=== PATIENT | female | born 1985 | race Caucasian/White ===

== ENCOUNTER 2019-12-08 17:34 | Inpatient (IN) | payer BC ==
[~2019-12-08 17:34] MED LIST: Sodium Chloride 0.9% (PF) 10 ML VIAL ONE
[2019-12-08 18:11] VITALS: BMI 30.5
[2019-12-08] MEDS ORDERED: Acetaminophen 500 MG TAB PO PRN (20:06)
[2019-12-08] MEDS ORDERED: Carboprost 250 MCG/ML AMP IM PRN (20:06)
[2019-12-08] MEDS ORDERED: Butorphanol Tartrate 1 MG/ML VIAL SLOW IVP PRN (20:06)
[2019-12-08] MEDS ORDERED: Diphenoxylate HCl/Atropine Tablet PO PRN ×2 (20:06)
[2019-12-08] MEDS ORDERED: Ibuprofen 800 MG TAB PO PRN (20:06)
[2019-12-08] MEDS ORDERED: Promethazine HCl 25 MG/ML VIAL IM PRN ×2 (20:06→21:27)
[2019-12-08] MEDS ORDERED: Lidocaine 1% (PF) 30 ML VIAL SC PRN (20:06)
[2019-12-08] MEDS ORDERED: HYDROcodone/Acetaminophen 5/325 mg Tablet PO PRN ×2 (20:06)
[2019-12-08] MEDS ORDERED: Methylergonovine 0.2 MG/ML VIAL IM PRN (20:06)
[2019-12-08] MEDS ORDERED: NS / Oxytocin 40 units/1000ml 1,000 ML IV PRN (20:06)
[2019-12-08] MEDS ORDERED: Misoprostol 200 MCG TAB PR PRN (20:06)
[2019-12-08] MEDS ORDERED: hydrALAZINE 20 MG/ML VIAL SLOW IVP PRN (20:06)
[2019-12-08] MEDS ORDERED: Ondansetron PF 4 MG/2 ML Vial IVP PRN ×2 (20:06→21:27)
[2019-12-08] MEDS ORDERED: Fentanyl 4 mcg/Bup 0.1% Cadd 100 ML ONE (20:58)
[2019-12-08 21:01] LABS: Hemoglobin 13.4 g/dL (12.0-16.0); Mean Corpuscular HGB CONC 33.7 g/dL (32.0-36.0); Mean Corpuscular Hemoglobin 29.7 pg (27.0-31.0); Mean Corpuscular Volume 88.1 fL (78.0-98.0); Mean Platelet Volume 9.8 fL (7.4-10.4); Platelet Count 287 thou/uL (130-400); RBC Distribution Width 13.3 % (11.5-14.5); Red Blood Cell (RBC) Count 4.51 mill/uL (4.20-5.40); White Blood Cell (WBC) Count 18.7 thou/uL (4.8-10.8)
[2019-12-08] MEDS ORDERED: Acetaminophen 325 MG TAB PO PRN (21:27)
[2019-12-08] MEDS ORDERED: Naloxone HCl 0.4 mg/ml Vial IVP PRN ×2 (21:27)
[2019-12-08] MEDS ORDERED: diphenhydrAMINE 50 MG/ML VIAL IVP PRN (21:27)
[2019-12-08] MEDS ORDERED: Lactated Ringer's 500 ML IV PRN (21:27)
[2019-12-08] MEDS ORDERED: EPHEDRINE 25 MG/5 ML SYRINGE SLOW IVP PRN (21:27)
[2019-12-08] MEDS ORDERED: Fentanyl 4 mcg/Bupivacaine 0.1% Cassette 100 ML EPIDURAL SCH (21:30)
[2019-12-08] MEDS ORDERED: Communication Order-Pharmacy FS SCH (21:30)
[2019-12-08 21:36] LABS: Syphilis Antibody Nonreactive (Nonreactive); Syphilis Antibody Index 0.09 S/CO (<1.00 Non-Reactive)
[2019-12-08] MEDS: Lactated Ringer's 1,000 ML IV SCH (21:53)
--- NOTE | 2019-12-08 23:20 | PDOC.LDPN ---
Labor & Delivery Progress Note - Subjective Subjective: comfortable - Objective Vital signs reviewed and normal: yes General: NAD, resting Uterine fundus: non tender Dilation: 9 Effacement: 100% Station: 0 FHT: category 1 [place] contractions every: 3 mins AROM: clear fluid Plan: continue plan of care
--- NOTE | 2019-12-09 00:37 | PDOC.LDHP ---
Labor and Delivery H&P Chief complaint: contractions HPI: 34yo at 39w with painful contractions at 6cm dilated on arrival to L&D Current gestational age (weeks): 39 Due date: 12/14/19 Dating criteria: last menstrual period Grav: 3 Para: 1 Current complications: none Abnormal US findings: No Past Medical History: denies Current medications: pre-ike vitamins Allergies/Adverse Reactions: Allergies Allergy/AdvReac Type Severity Reaction Status Date / Time adhesive tape Allergy Rash Verified 12/08/19 20:34 hydrocodone Allergy Nausea Verified 12/08/19 20:34 Social history: none - Physical Exam Vital signs reviewed and normal: yes General: NAD Heart: RRR Lungs: CTAB Abdomen: gravid Extremeties: no edema FHT: category 1 [place] contractions every: 2min - Vaginal Exam cm dilated: 10 Effacement: 100% Station: 1+ - OB Labs Blood type: O RH: negative Antibody Screen: negative HIV: negative RPR: negative HEPSAg: negative 1 hour GCT: negative GBS: negative Urine drug screen: negative Rubella: immune - Assessment L&D Assessment: term patient in labor - Plan Plan: admit to L&D, labor augmentation if indicated, informed consent obtained, anesthesia consult for pain management
--- NOTE | 2019-12-09 00:39 | PDOC.LDPN ---
Labor & Delivery Progress Note - Subjective Subjective: vaginal pressure - Objective Vital signs reviewed and normal: yes General: NAD Uterine fundus: non tender Dilation: 10 Effacement: 100% Station: 2+ FHT: category 1 [place] contractions every: 2 min Plan: continue plan of care
[2019-12-09 01:10] LABS: HBSAg Index 0.21 S/CO (0-0.99); Hep B Surf Ag Non-Reactive S/CO (NonReactive)
--- NOTE | 2019-12-09 02:14 | PDOC.LDPN ---
Labor & Delivery Progress Note - Subjective Subjective: painful contractions - Objective Vital signs reviewed and normal: yes General: breathing through contractions Uterine fundus: non tender Dilation: 10 Effacement: 100% Station: 1+ FHT: category 1 [place] contractions every: 3min -: pushing now x 2 hours with no significant descent. dispo for PCS for AOD , suspect CPD. Pt agrees
[2019-12-09] MEDS ORDERED: Azithromycin 500 MG in Sodium Chloride 0.9% 250 ML 250 ML IVPB SCH (02:15)
[2019-12-09] MEDS ORDERED: CEFAZOLIN 2 GM in Premix Bag 1 BAG IVPB SCH (02:15)
[2019-12-09] MEDS ORDERED: Bicitra 30 ML UDCUP PO SCH (02:15)
[2019-12-09] MEDS ORDERED: Terbutaline Sulfate 1 MG/ML VIAL ONE (02:17)
[2019-12-09] MEDS ORDERED: Naloxone HCl 0.4 mg/ml Vial IV PRN (02:28)
[2019-12-09] MEDS ORDERED: Promethazine HCl 25 MG SUPP PR PRN (02:28)
[2019-12-09] MEDS ORDERED: HYDROmorphone 2 MG/ML VIAL SLOW IVP PRN (02:28)
[2019-12-09] MEDS ORDERED: Promethazine HCl 25 MG/ML VIAL IM PRN (02:28)
[2019-12-09] MEDS ORDERED: Naloxone HCl 0.4 mg/ml Vial IVP PRN ×2 (02:28)
[2019-12-09] MEDS ORDERED: Ondansetron PF 4 MG/2 ML Vial IVP PRN ×2 (02:28→08:06)
[2019-12-09] MEDS ORDERED: diphenhydrAMINE 50 MG/ML VIAL IVP PRN (02:28)
[2019-12-09] MEDS ORDERED: Meperidine HCl/PF 25 MG/ML VIAL SLOW IVP PRN (02:28)
[2019-12-09] MEDS ORDERED: Ketorolac Tromethamine 30 MG/ML VIAL IVP PRN (02:28)
[2019-12-09] MEDS ORDERED: L&D-Morphine 4 MG/ML VIAL SLOW IVP PRN (02:28)
[2019-12-09] MEDS ORDERED: Ondansetron HCl/PF 4 MG/2 ML Vial IVP PRN (02:28)
[2019-12-09] MEDS ORDERED: Communication Order-Pharmacy FS SCH (02:30)
[2019-12-09] MEDS ORDERED: Ketorolac Tromethamine 30 MG/ML VIAL IVP SCH (02:30)
[2019-12-09] MEDS ORDERED: Fentanyl 4 mcg/Bup 0.1% Cadd 100 ML ONE (04:05)
[2019-12-09] MEDS ORDERED: Fentanyl 100 MCG/2 ML VIAL ONE (04:12)
[2019-12-09] MEDS ORDERED: MORPHINE 5 MG/10 ML PF VIAL ONE (04:12)
[2019-12-09] MEDS ORDERED: Ondansetron PF 4 MG/2 ML Vial ONE (04:15)
[2019-12-09] MEDS ORDERED: Dexamethasone 4 mg/ml Vial ONE (04:15)
[2019-12-09] MEDS ORDERED: Bupivacaine/Epinephrine 0.5% 10 ML VIAL ONE (04:15)
[2019-12-09] MEDS ORDERED: Oxytocin 10 UNITS/ML VIAL ONE (04:15)
[2019-12-09] MEDS ORDERED: PHENYLEPHRINE-NS 100 MCG/ML 10 ML SYRINGE ONE (04:15)
[2019-12-09] MEDS ORDERED: Ketorolac Tromethamine 30 MG/ML VIAL ONE (04:15)
[2019-12-09] MEDS ORDERED: Bupivacaine HCl 0.5%/Epinephrine 1:200,000/PF 30 ml Vial ONE (04:25)
--- NOTE | 2019-12-09 05:32 | PDOC.OPDEL ---
OB Operative/Delivery Note Delivery Dr/Surgeon: Carmel Assist: Romy Pre-Delivery Diagnosis: arrest of dilation (arrest of descent) Procedure/Post Delivery Dx: primary low transverse CS Weeks gestation: 39 Anesthesia: epidural - Findings A Sex: female Weight: 8 lb 11 oz - 1 min: 8 - 5 min: 9 - Additional Findings/Plan Placenta delivered: spontaneous findings: low transverse hysterotomy without extension, normal uterus, normal tubes, normal ovaries Estimated blood loss: 500cc Post delivery plan: routine recovery
--- NOTE | 2019-12-09 05:54 | OP ---
DATE OF PROCEDURE: 12/09/2019 PREOPERATIVE DIAGNOSES: 1. Intrauterine at 39 weeks. 2. Arrest of descent. POSTOPERATIVE DIAGNOSES: 1. Intrauterine at 39 weeks. 2. Arrest of descent. PROCEDURE PERFORMED: Primary low-transverse section via Pfannenstiel skin incision. ANESTHESIA: Epidural. [place] HISTORY PROFESSOR SURGEON: Louisa Stanton MD ESTIMATED BLOOD LOSS: 500 mL. COMPLICATIONS: None. DRAINS: Oseguera catheter. PATHOLOGY: None. FINDINGS: Female , cephalic presentation, clear amniotic fluid. OA. Apgars 8 and 9. Weight is 8 pounds 11 ounces. Hysterotomy without extension. Normal uterus, ovaries, and tubes bilaterally. DESCRIPTION OF PROCEDURE: The patient was taken to the operating room, where epidural anesthesia was found to be adequate. The patient was prepped and draped in a sterile fashion in the dorsal supine position with a leftward tilt. After ensuring adequacy of anesthesia, a Pfannenstiel skin incision was made and carried down to the underlying subcutaneous tissue with the Bovie. The fascia was nicked in the midline with the Bovie and carried laterally with the Peralta scissors. The superior aspect of the fascia was tented with 2 Gloria's and dissected off the rectus bluntly. The inferior aspect of the fascia was tented with 2 Gloria's and dissected off the rectus with the Peralta scissors. Rectus was bluntly divided in the midline and the peritoneum was made bluntly entered into and manually retracted. The Jamey O retractor was placed and the vesicouterine peritoneum was incised with the Metzenbaums and a bladder flap was created. The lower uterine segment was incised in a transverse fashion and extended with a Melgoza maneuver. The 's head was brought to the hysterotomy and delivered with fundal pressure. The infant's cord was clamped and infant handed to awaiting Jose team. The cord blood was obtained and the placenta was allowed to spontaneously deliver. The uterus was exteriorized, cleared of all clots and debris, and then placed back into the abdomen. The hysterotomy was repaired with #1 Monocryl in a running locking fashion. A second imbricating layer horizontal of #1 Monocryl was also placed. Hemostasis was noted to be excellent. Irrigation was performed of the pelvis and gutters and suctioned. Hemostasis was again noted. The Jamey O retractor was removed. The rectus muscles were examined and noted to be hemostatic. The fascia was reapproximated with a 0 PDS in a running fashion with excellent reapproximation. The subcutaneous tissue was irrigated and cauterized of any bleeders and reapproximated with a 2-0 plain gut in a running fashion. The skin was closed with a 4-0 Monocryl in a subcuticular fashion. Dermabond was applied as well as a pressure dressing. The patient tolerated the procedure well. Sponge and needle counts were correct x2. The patient was taken to the recovery room in stable condition. The patient received Ancef 2 g and azithromycin 500 mg prior to the procedure. Job ID: [id number]
[2019-12-09] MEDS ORDERED: Lanolin Ointment 7 GM TUBE TOP PRN (08:06)
[2019-12-09] MEDS ORDERED: Methylergonovine 0.2 MG/ML VIAL IM PRN (08:06)
[2019-12-09] MEDS ORDERED: Acetaminophen 325 MG TAB PO PRN (08:06)
[2019-12-09] MEDS ORDERED: Adacel (T-DAP) 0.5 ML SYRINGE IM ONE (08:06)
[2019-12-09] MEDS ORDERED: hydrALAZINE 20 MG/ML VIAL SLOW IVP PRN (08:06)
[2019-12-09] MEDS ORDERED: NS / Oxytocin 40 units/1000ml 1,000 ML IV SCH (08:06)
[2019-12-09] MEDS ORDERED: Simethicone Chewable 80 MG TAB PO PRN (08:06)
[2019-12-09] MEDS ORDERED: Misoprostol 200 MCG TAB PR PRN (08:06)
--- NOTE | 2019-12-09 08:33 | OP ---
DATE OF PROCEDURE: 12/09/2019 ADDENDUM: I was present and scrubbed to assist the uncomplicated primary low-transverse with Dr. Elle Burt, please see her note for full details. Job ID: [id number]
[2019-12-09] MEDS: Docusate Calcium (SURFAK) 240 MG CAP PO SCH ×2 (09:02→20:24)
[2019-12-09] MEDS: Lactated Ringer's 1,000 ML IV SCH ×3 (09:02→18:45)
[2019-12-09] MEDS: Prenatal Vitamin 1 TAB PO SCH (09:02)
[2019-12-09] MEDS ORDERED: traMADol HCl 50 MG TAB PO PRN ×3 (14:30→18:33)
[2019-12-09] MEDS: traMADol HCl 50 MG TAB PO PRN (18:52)
[2019-12-09] MEDS: diphenhydrAMINE 25 MG CAP PO PRN (20:32)
[2019-12-10] MEDS: Ibuprofen 800 MG TAB PO SCH ×3 (04:27→21:06)
[2019-12-10] MEDS: traMADol HCl 50 MG TAB PO PRN ×2 (04:28→22:36)
[2019-12-10 05:34] LABS: Hemoglobin 11.6 g/dL (12.0-16.0); Mean Corpuscular Hemoglobin 28.6 pg (27.0-31.0); Mean Corpuscular Volume 89.4 fL (78.0-98.0); Mean Platelet Volume 9.9 fL (7.4-10.4); Platelet Count 255 thou/uL (130-400); RBC Distribution Width 13.3 % (11.5-14.5); Red Blood Cell (RBC) Count 4.06 mill/uL (4.20-5.40); White Blood Cell (WBC) Count 16.5 thou/uL (4.8-10.8)
[2019-12-10] MEDS: Lactated Ringer's 1,000 ML IV SCH ×4 (05:56→21:13)
[2019-12-10] MEDS ORDERED: traMADol HCl 50 MG TAB PO PRN ×3 (07:06→22:24)
[2019-12-10] MEDS: Docusate Calcium (SURFAK) 240 MG CAP PO SCH ×2 (09:03→21:06)
[2019-12-10] MEDS: Prenatal Vitamin 1 TAB PO SCH (09:03)
--- NOTE | 2019-12-10 14:02 | PDOC.PP ---
Post Progress Note Post Day #: 1 Subjective: Patient is doing well. she was up to shower last night, is using the restroom, passing gas. She is a little sore, but overall doing well. PO intake tolerated: yes Flatus: yes Ambulation: yes Vital Signs (12 hours) Temp Pulse Resp BP Pulse Ox 12/10/19 11:43 98.9 F 77 20 130/79 12/10/19 08:03 97.8 F 72 20 108/59 L 95 12/10/19 04:35 98.4 F 80 16 127/72 Weight Weight 167 lb - Physical Examination General: NAD Respiratory: non-labored breathing Abdominal: lochia (minimal), no distention, appropriately TTP Fundus firm & at: -1 Extremities: negative homans (B) Skin: CS incision dry & intact (erythematous papular rash on ABD.) Neurological: no gross focal deficits Psychiatric: A&Ox3, normal affect Result Diagrams: 12/10/19 05:12 Additional Labs: Post Labs Blood Type O NEGATIVE 12/08/19 20:42 Hep Bs Antigen Non-Reactive S/CO (NonReactive) 12/08/19 20:42 (1) delivery delivered Code(s): O82 - ENCOUNTER FOR DELIVERY WITHOUT INDICATION Status: Acute (2) Rash due to allergy Code(s): R21 - RASH AND OTHER NONSPECIFIC SKIN ERUPTION Status: Acute - Assessment/Plan A: G2 now p2 s/p Primary LTCS for failure of decent contact allergic reaction on abd (likely adhesive from sterile drape due to pattern and line of demarcation) P: topical steroid ordered Routine care. Evaluate for discharge home in 1-2 days.
[2019-12-10] MEDS: Hydrocortisone 1% Cream 30 GM TUBE TOP SCH ×2 (14:34→21:09)
[2019-12-10] MEDS: diphenhydrAMINE 25 MG CAP PO PRN (21:07)
[2019-12-11] MEDS: Ibuprofen 800 MG TAB PO SCH ×2 (06:01→14:32)
--- NOTE | 2019-12-11 06:45 | PDOC.PP ---
Post Progress Note Post Day #: 2 Subjective: doing well, states abdominal rash is not itchy PO intake tolerated: yes Flatus: yes Ambulation: yes Vital Signs (12 hours) Temp Pulse Resp BP Pulse Ox 12/11/19 04:00 98 F 70 14 144/74 H 98 12/11/19 00:00 97.9 F 74 16 133/78 96 12/10/19 19:22 99.2 F 99 16 104/89 95 Weight Weight 167 lb - Physical Examination General: NAD Respiratory: non-labored breathing Abdominal: lochia, no distention, appropriately TTP Extremities: negative homans (B) Skin: CS incision dry & intact (Sutured with DB. There is an abdominal skin rash C/U urticaria from the adhesive on the durgical drape. there are no blisters. It is uniform and blanches) Neurological: no gross focal deficits Psychiatric: A&Ox3, normal affect Result Diagrams: 12/10/19 05:12 Additional Labs: Post Labs Blood Type O NEGATIVE 12/08/19 20:42 Hep Bs Antigen Non-Reactive S/CO (NonReactive) 12/08/19 20:42 (1) delivery delivered Code(s): O82 - ENCOUNTER FOR DELIVERY WITHOUT INDICATION Status: Acute (2) Rash due to allergy Code(s): R21 - RASH AND OTHER NONSPECIFIC SKIN ERUPTION Status: Acute - Assessment/Plan POD 2 doing well, desires DC at 1600 today. Rash on abdomen reviewed with her, no issues now...RX conservatively with benadryl and hydrocortisone topically. F/ U in 2 weeks.
[2019-12-11 07:42] VITALS: BP 142/81; TEMP 97.7
[2019-12-11] MEDS: Lactated Ringer's 1,000 ML IV SCH (09:08)
[2019-12-11] MEDS: Docusate Calcium (SURFAK) 240 MG CAP PO SCH (09:16)
[2019-12-11] MEDS: Hydrocortisone 1% Cream 30 GM TUBE TOP SCH (09:16)
[2019-12-11] MEDS: Prenatal Vitamin 1 TAB PO SCH (09:16)
[2019-12-11] MEDS: traMADol HCl 50 MG TAB PO PRN (11:09)
== END 2019-12-11 15:16 | disposition home or self-care (01) | DRG 788 ==
LOC: L&D/OP 17:34 → L&D 22:35 → 3SE 12-09 08:26
PROVIDERS: ADMIT Student in an Organized Health Care Education/Training Program; ATTEND Student in an Organized Health Care Education/Training Program
PROC: 10907ZC Drainage of Amniotic Fluid, Therapeutic from Products of Conception, Via Natural or Artificial Opening (ICD-10-PCS; 2019-12-08)
PROC: 10D00Z1 Extraction of Products of Conception, Low, Open Approach (ICD-10-PCS; principal; 2019-12-09)
PROC: 3E0334Z Introduction of Serum, Toxoid and Vaccine into Peripheral Vein, Percutaneous Approach (ICD-10-PCS; 2019-12-09)
DX: O32.4XX0 Maternal care for high head at term, not applicable or unspecified (principal); Z3A.39 39 weeks gestation of pregnancy; Z37.0 Single live birth; T78.49XA Other allergy, initial encounter; O99.73 Diseases of the skin and subcutaneous tissue complicating the puerperium; Z88.8 Allergy status to other drugs, medicaments and biological substances; Z91.048 Other nonmedicinal substance allergy status
CPT/HCPCS: 36415; 51702; 85027; 85461; 86780; 86850; 86870; 86900; 86901; 87340; 90384; 96372; 99285; J0670; J1100; J1885; J2001; J2274; J2405; J2590; J3010; J3105; J3490; Q0163